=== PATIENT | male | born 1965 | race Caucasian/White ===

== ENCOUNTER 2016-03-09 13:08 | Emergency (ER) | payer OTHER ==
[~2016-03-09] VITALS: Wt 81.8 kg
[~2016-03-09 13:08] MED LIST: NAPR-260 PO; ULT50 PO
== END 2016-03-09 14:22 | disposition left against medical advice (07) ==
LOC: FTE 13:08
DX: Z53.21 Procedure and treatment not carried out due to patient leaving prior to being seen by health care provider (principal)